=== PATIENT | female | born 1960 | race Caucasian/White ===

== ENCOUNTER 2016-10-27 13:08 | Emergency (ER) | payer OTHER ==
[2016-10-27 14:48] VITALS: BP 153/113
--- NOTE | 2016-10-27 16:02 | EDM.PDOC ---
ED HPI GENERAL MEDICAL PROBLEM - General Chief Complaint: Lower Extremity Injury/Pain Stated Complaint: LEFT LEG/KNEE INJURY Time Seen by Provider: 10/27/16 14:59 Source of Information: Reports: Patient History Limitations: Reports: No Limitations - History of Present Illness INITIAL COMMENTS - FREE TEXT/NARRATIVE: 56 yo female presents with left LE pain and posterior knee pain. yesterday her dog tripped her by running into the back of her legs. she did not feel pain at time of injury and she had a regular day, [place]. This morning woke with pain in lower leg and tight feeling in knee. She is able to walk with mild pain. Left Knee Pain Score (Numeric/FACES): 5 - Related Data Allergies Allergy/AdvReac Type Severity Reaction Status Date / Time amitriptyline Allergy Irritabilit Verified 09/23/15 22:19 y azithromycin Allergy Nausea Verified 09/23/15 22:19 erythromycin base Allergy Nausea Verified 09/23/15 22:19 morphine Allergy Hallucinati Verified 09/23/15 22:19 ons Home Meds: Home Meds Acai/Green Tea/Ginsng/Chromium [Acai Weight Control] 150 mg PO DAILY 04/21/15 [ History] Black Cohosh 1 cap PO BEDTIME 04/21/15 [History] Calcium/Magnesium/Zinc [Jhhdxev-Pqulzpdce-Tgqe Tab] 3 cap PO DAILY 04/21/15 [ History] Cholecalciferol (Vitamin D3) [Vitamin D] 1,000 unit PO DAILY 04/21/15 [History] Multivitamin with Minerals [Multiple Vitamin] 1 tab PO DAILY 04/21/15 [History] Naproxen Sodium [Aleve] 220 mg PO DAILY 04/21/15 [History] Omeprazole [Omeprazole] 20 mg PO DAILY 04/21/15 [History] SUMAtriptan [Imitrex] 50 mg PO DAILY 04/21/15 [History] buPROPion [Wellbutrin XL] 300 mg PO Q48H 04/21/15 [History] diphenhydrAMINE [Benadryl] 50 mg PO BEDTIME 04/21/15 [History] tiZANidine [Zanaflex] 1 mg PO Q8H PRN 04/21/15 [History] traMADol [Ultram] 50 mg PO BEDTIME 04/21/15 [History] Past Medical History [employer] History: Reports: Endometriosis Neurological History: Reports: Migraines Psychiatric History: Reports: Depression Endocrine/Metabolic History: Reports: Other (See Below) Other Endocrine/Metabolic History: pre diabetes - Infectious Disease History Infectious Disease History: Reports: Chicken Pox - Past Surgical History GI Surgical History: Reports: Appendectomy, Hernia Repair/Other Female Surgical History: Reports: Section, Hysterectomy, Salpingo- Oophorectomy Musculoskeletal Surgical History: Reports: Carpal Tunnel, Other (See Below) Other Musculoskeletal Surgeries/Procedures:: plate in her neck Social & Family History - Tobacco Use Smoking Status *Q: Never Smoker Second Hand Smoke Exposure: No - Recreational Drug Use Recreational Drug Use: No Review of Systems - Review of Systems Review Of Systems: See Below Constitutional: Denies: Fever, Weakness Respiratory: Denies: Shortness of Breath, Wheezing Cardiovascular: Denies: Chest Pain GI/Abdominal: Denies: Abdominal Pain Genitourinary: Denies: Dysuria ED EXAM, GENERAL - Physical Exam Exam: See Below Exam Limited By: No Limitations General Appearance: Alert, WD/WN, No Apparent Distress Head: Atraumatic, Normocephalic Respiratory/Chest: No Respiratory Distress, Lungs Clear, Normal Breath Sounds. No: Crackles, Rhonchi, Wheezing Cardiovascular: Normal Peripheral Pulses, Regular Rate, Rhythm, No Edema Peripheral Pulses: 2+: Posterior Tibial (L), Posterior Tibial (R), Dorsalis Pedis (L), Dorsalis Pedis (R) Extremities: Other (left LE pain with dorsal flex of foot in upper calf, no edema or erythema or scchymosis) Course - Vital Signs Last Recorded V/S: Last Vital Signs Temp 36.8 C 10/27/16 14:55 Pulse 87 10/27/16 14:55 Resp 16 10/27/16 14:55 BP 153/113 H 10/27/16 14:55 Pulse Ox 95 10/27/16 14:55 - Orders/Labs/Meds Orders: Active Orders 24 hr Category Date Time Status Knee 3V Lt [CR] Stat Exams 10/27/16 15:07 Taken - Re-Assessments/Exams Free Text/Narrative Re-Assessment/Exam: 10/27/16 20:04 no acute injury on X-ray, discussed stretching and activity of lower leg Departure - Departure Time of Disposition: 16:01 Disposition: Home, Self-Care 01 Condition: Good Clinical Impression: Muscle strain, lower leg Qualifiers: Encounter type: initial encounter Laterality: left Qualified Code(s): S86.912A - Strain of unspecified muscle(s) and tendon(s) at lower leg level, left leg, initial encounter - Discharge Information Instructions: Muscle Strain Referrals: Rohan Byrd MD [Primary Care Provider] - Forms: ED Department Discharge Additional Instructions: light stretching alternate ice and heat keep moving foot to flex calf increase fluid intake with goal of 1.5 liters - My Orders Last 24 Hours: My Active Orders 10/27/16 15:07 Knee 3V Lt [CR] Stat - Assessment/Plan Last 24 Hours: My Active Orders 10/27/16 15:07 Knee 3V Lt [CR] Stat
--- NOTE | 2016-10-28 09:13 | CR ---
Knee 3V Lt HISTORY: Pain COMPARISON: None. Findings: The joint space preservation. No fracture or significant effusion. No bony destructive pro cess.
== END 2016-10-27 16:17 | disposition home or self-care (01) ==
LOC: JP.ED 13:08
DX: S86.912A Strain of unspecified muscle(s) and tendon(s) at lower leg level, left leg, initial encounter (principal); F32.9 Major depressive disorder, single episode, unspecified; Z90.49 Acquired absence of other specified parts of digestive tract; Z90.721 Acquired absence of ovaries, unilateral; Z90.710 Acquired absence of both cervix and uterus; Z98.890 Other specified postprocedural states; Z79.899 Other long term (current) drug therapy; Z88.1 Allergy status to other antibiotic agents; Z88.5 Allergy status to narcotic agent; W18.40XA Slipping, tripping and stumbling without falling, unspecified, initial encounter
CPT/HCPCS: 73562-26-LT; 73562-LT; 99284

== ENCOUNTER 2021-09-21 22:36 | Emergency (ER) | payer OTHER ==
[2021-09-21] MEDS ORDERED: Sodium Chloride 0.9% 10 ML Syringe FLUSH PRN (22:48)
[2021-09-21] MEDS ORDERED: Ondansetron 4 MG/2 ML SDV IVPUSH ONE (22:48)
[2021-09-21 22:59] VITALS: BP 126/76; PULSE 103
[2021-09-21] MEDS ORDERED: Sodium Chloride 0.9% 1,000 ML IV SCH (23:00)
[2021-09-21 23:24] LABS: ESTIMATED GFR > 60 (>60)
== END 2021-09-22 01:00 | disposition home or self-care (01) ==
LOC: JP.ED 22:36
DX: R11.2 Nausea with vomiting, unspecified (principal); R19.7 Diarrhea, unspecified; J30.2 Other seasonal allergic rhinitis; Z90.49 Acquired absence of other specified parts of digestive tract; Z90.710 Acquired absence of both cervix and uterus; Z79.899 Other long term (current) drug therapy; Z88.1 Allergy status to other antibiotic agents; Z88.0 Allergy status to penicillin; Z88.6 Allergy status to analgesic agent
CPT/HCPCS: 36415; 70486; 80053; 85025; 86140; 96361; 96374; 99284; J2405; J3490; J7030

== ENCOUNTER 2022-10-13 13:48 | Emergency (ER) | payer OTHER ==
[2022-10-13 16:21] VITALS: BP 161/97; PULSE 101
== END 2022-10-13 16:41 | disposition home or self-care (01) ==
LOC: JP.ED 13:48
DX: M19.90 Unspecified osteoarthritis, unspecified site (principal); L08.9 Local infection of the skin and subcutaneous tissue, unspecified; E78.00 Pure hypercholesterolemia, unspecified; K21.9 Gastro-esophageal reflux disease without esophagitis; I10 Essential (primary) hypertension; E11.9 Type 2 diabetes mellitus without complications; Z86.16 Personal history of COVID-19; Z88.0 Allergy status to penicillin; Z88.1 Allergy status to other antibiotic agents; Z88.5 Allergy status to narcotic agent; Z79.84 Long term (current) use of oral hypoglycemic drugs; Z79.899 Other long term (current) drug therapy
CPT/HCPCS: 73140-26-F8; 73140-F8; 99283

== ENCOUNTER 2023-01-29 06:59 | Day surgery (SDC) | payer OTHER ==
[2023-01-29 07:20] LABS: BASOPHILS ABSOLUTE AUTO 0.07 K/uL (0.00-0.10); BASOPHILS PERCENT AUTO 1.3 % (0.1-1.3); EOSINOPHILS ABSOLUTE AUTO 0.13 K/uL (0.00-0.40); EOSINOPHILS PERCENT AUTO 2.4 % (0.0-5.4); HEMATOCRIT 34.7 % (34.3-46.0); HEMOGLOBIN 10.6 g/dL (11.2-15.5); IMMATURE GRAN PERCENT AUTO 0.2 % (0.0-0.7); LYMPHOCYTES ABSOLUTE AUTO 1.94 K/uL (0.8-3.3); LYMPHOCYTES PERCENT AUTO 36.3 % (11.4-47.7); MEAN CORPUSCULAR HEMOGLOBIN 24.3 pg (31.6-35.5); MEAN CORPUSCULAR HGB CONC 30.5 g/dL (31.6-35.5); MEAN CORPUSCULAR VOLUME 79.6 fL (81.4-99.0); MONOCYTES ABSOLUTE AUTO 0.42 K/uL (0.20-0.90); MONOCYTES PERCENT AUTO 7.9 % (3.3-12.6); NEUTROPHILS ABSOLUTE AUTO 2.77 K/uL (1.0-7.6); NEUTROPHILS PERCENT AUTO 51.9 % (40.0-78.1); PLATELET COUNT,PLT 378 K/uL (130-375); RED BLOOD CELL COUNT 4.36 M/uL (3.77-5.24); WHITE BLOOD CELL COUNT,WBC 5.3 K/uL (3.2-11.0)
[2023-01-29 07:21] LABS: IMMATURE GRAN ABSOLUTE AUTO 0.01 K/uL (0.00-0.23)
[2023-01-29] MEDS ORDERED: Lactated Ringers 1,000 ML IV SCH (07:30)
[2023-01-29] MEDS ORDERED: Nozin Nasal Sanitizer NASBOTH ONE (07:30)
[2023-01-29 07:41] LABS: A/G RATIO 1.1 (1.2-2.2); ALANINE AMINOTRANSFERASE,ALT 19 U/L (12-78); ALBUMIN 3.7 g/dL (3.4-5.0); ALKALINE PHOSPHATASE 88 U/L (46-116); ASPARTATE AMNIOTRANSFERASE,AST 26 U/L (15-37); BILIRUBIN TOTAL 0.3 mg/dL (0.2-1.0); BLOOD UREA NITROGEN,BUN 19 mg/dL (7-18); CALCIUM 8.6 mg/dL (8.5-10.1); CARBON DIOXIDE,CO2 27 mmol/L (21-32); CHLORIDE,CL 100 mmol/L (100-108); CREATININE 0.7 mg/dL (0.6-1.0); EST CRCL DRUG DOSING (CG) 60.62 mL/min; ESTIMATED GFR 98 mL/min (>60); GLUCOSE RANDOM 150 mg/dL (74-106); POTASSIUM,K 4.2 mmol/L (3.6-5.2); PROTEIN TOTAL,TP 7.1 g/dL (6.4-8.2); SODIUM,NA 136 mmol/L (140-148)
[2023-01-29 07:43] LABS: ANION GAP 13.2 mmol/L (5.0-14.0)
[2023-01-29] MEDS ORDERED: Propofol 200 MG/20 ML SDV ONE ×2 (07:47→09:35)
[2023-01-29] MEDS ORDERED: Midazolam 1 MG/ML 2 ML SDV ONE (07:48)
[2023-01-29] MEDS ORDERED: fentaNYL 100 MCG/2 ML SDV ONE ×2 (07:48→09:18)
[2023-01-29] MEDS ORDERED: Bupivacaine 0.5% 30 ML SDV ONE (07:49)
[2023-01-29] MEDS ORDERED: ceFAZolin 2 GM in Premix Bag 1 BAG IV ONE (08:15)
[2023-01-29] MEDS ORDERED: Labetalol 20 MG/4 ML Syringe ONE (09:15)
[2023-01-29] MEDS ORDERED: Albuterol/Ipratropium 3.0-0.5 MG/3 ML Neb Soln NEB ONE (10:25)
[2023-01-29] MEDS ORDERED: Acetaminophen/oxyCODONE 325-5 MG Tab PO PRN (12:24)
[2023-01-29 12:31] VITALS: BP 121/86; PULSE 64
== END 2023-01-29 13:15 | disposition home or self-care (01) ==
LOC: JP.SDS 06:59
PROVIDERS: ATTEND Specialist
DX: M75.121 Complete rotator cuff tear or rupture of right shoulder, not specified as traumatic (principal); M66.811 Spontaneous rupture of other tendons, right shoulder; E11.9 Type 2 diabetes mellitus without complications; K21.9 Gastro-esophageal reflux disease without esophagitis; I49.9 Cardiac arrhythmia, unspecified; I10 Essential (primary) hypertension; F41.9 Anxiety disorder, unspecified; F32.A Depression, unspecified; M79.7 Fibromyalgia; E78.00 Pure hypercholesterolemia, unspecified; E66.9 Obesity, unspecified; Z88.5 Allergy status to narcotic agent; Z88.1 Allergy status to other antibiotic agents; Z88.8 Allergy status to other drugs, medicaments and biological substances
CPT/HCPCS: 29826; 29827; 36415; 80053; 85025; A9270; C1713; J0690; J2250; J2704; J3010; J3490; J7120; J7620

== ENCOUNTER 2023-11-25 07:29 | Day surgery (SDC) | payer OTHER ==
[~2023-11-25 07:29] MED LIST: Midazolam 1 MG/ML 2 ML SDV ONE; Propofol 200 MG/20 ML SDV ONE; fentaNYL 50 MCG/ML SDV ONE
[2023-11-25] MEDS: Sodium Chloride 0.9% 1,000 ML IV SCH (08:08)
[2023-11-25] MEDS ORDERED: Propofol 200 MG/20 ML SDV ONE (09:07)
[2023-11-25 10:07] VITALS: BP 148/104; PULSE 94
== END 2023-11-25 10:12 | disposition home or self-care (01) ==
LOC: JP.SDS 07:29
PROVIDERS: ATTEND Surgery
DX: Z12.11 Encounter for screening for malignant neoplasm of colon (principal); K21.9 Gastro-esophageal reflux disease without esophagitis; E11.9 Type 2 diabetes mellitus without complications; E66.9 Obesity, unspecified; E78.5 Hyperlipidemia, unspecified
CPT/HCPCS: 43239; G0121; J2704; J3010; J7030; 88305; J2250

== ENCOUNTER 2024-12-24 12:10 | Emergency (ER) | payer OTHER ==
[2024-12-24 12:15] VITALS: BP 176/109; PULSE 116
== END 2024-12-24 14:22 | disposition home or self-care (01) ==
LOC: JP.ED 12:10
DX: R04.0 Epistaxis (principal); I10 Essential (primary) hypertension; M19.90 Unspecified osteoarthritis, unspecified site; K21.9 Gastro-esophageal reflux disease without esophagitis; E78.00 Pure hypercholesterolemia, unspecified; E66.9 Obesity, unspecified; E11.9 Type 2 diabetes mellitus without complications; Z88.0 Allergy status to penicillin; Z88.1 Allergy status to other antibiotic agents; Z88.5 Allergy status to narcotic agent; Z88.8 Allergy status to other drugs, medicaments and biological substances; Z79.82 Long term (current) use of aspirin; Z79.84 Long term (current) use of oral hypoglycemic drugs; Z79.899 Other long term (current) drug therapy; Z90.49 Acquired absence of other specified parts of digestive tract; Z90.710 Acquired absence of both cervix and uterus; Z68.36 Body mass index [BMI] 36.0-36.9, adult
CPT/HCPCS: 30901; 99283; A9270

== ENCOUNTER 2024-12-26 06:21 | Emergency (ER) | payer OTHER ==
[2024-12-26 07:05] VITALS: BP 136/90; PULSE 104
== END 2024-12-26 07:06 | disposition home or self-care (01) ==
LOC: JP.ED 06:21
DX: R04.0 Epistaxis (principal); I10 Essential (primary) hypertension; E78.00 Pure hypercholesterolemia, unspecified; K21.9 Gastro-esophageal reflux disease without esophagitis; E11.9 Type 2 diabetes mellitus without complications; Z90.49 Acquired absence of other specified parts of digestive tract; Z79.84 Long term (current) use of oral hypoglycemic drugs; Z79.899 Other long term (current) drug therapy; Z79.82 Long term (current) use of aspirin; Z88.0 Allergy status to penicillin; Z88.1 Allergy status to other antibiotic agents; Z88.2 Allergy status to sulfonamides; Z88.5 Allergy status to narcotic agent; Z88.8 Allergy status to other drugs, medicaments and biological substances
CPT/HCPCS: 99282